=== PATIENT | male | born 1985 | race Hispanic/Latino ===

== ENCOUNTER 2018-02-07 19:01 | Emergency (ER) | payer MEDICAID, OTHER ==
[2018-02-07 19:53] VITALS: BMI 30.6
[2018-02-07 19:59] VITALS: RESP 18; TEMP 98
--- NOTE | 2018-02-07 23:06 | ED PDOC ---
Arrival/HPI - General Historian: Patient - History of Present Illness Narrative History of Present Illness (Text): 02/07/18 23:01 32-year-old male presents today with right ankle pain. Patient states he twisted his right ankle almost a week ago. Patient states he has been able to walk on it but he still having slight pain to the lateral aspect of the ankle with continued swelling. Patient also states he is having intermittent and left posterior knee pain. Patient denies any trauma or injury. He states for the past few months intermittently he'll get a sharp pain in the posterior aspect of the knee into the calf. Patient states he smokes occasionally. He denies numbness we akness or tingling in the extremity. He denies any pain in the calf or posterior knee at present time. <Virginia Rausch - Last Filed: 02/07/18 23:53> <Rey Brothers - Last Filed: 02/07/18 23:57> - General Chief Complaint: Lower Extremity Problem/Injury Time Seen by Provider: 02/07/18 21:14 Past Medical History - Provider Review Nursing Documentation Reviewed: Yes - Travel History Have you recently traveled outside [place] w/in the past 3 mons?: No - Psychiatric Hx Substance Use: No <Virginia Rausch - Last Filed: 02/07/18 23:53> Family/Social History - Physician Review Nursing Documentation Reviewed: Yes Family/Social History: Unknown Family HX Smoking Status: Light Smoker < 10 Cigarettes Daily Hx Alcohol Use: Yes Frequency of alcohol use: Socially Hx Substance Use: No <Virginia Rausch - Last Filed: 02/07/18 23:53> Allergies/Home Meds <Virginia Rausch - Last Filed: 02/07/18 23:53> <Rey Brothers - Last Filed: 02/07/18 23:57> Allergies/Adverse Reactions: Allergies No Known Allergies Allergy (Verified 02/07/18 19:56) Home Medications: Home Meds Medication Instructions Recorded Confirmed No Known Home Med 02/07/18 02/07/18 Review of Systems - Review of Systems Constitutional: absent: Fatigue, Fevers Respiratory: absent: SOB, Cough Cardiovascular: absent: Chest Pain, Palpitations Gastrointestinal: absent: Abdominal Pain, Nausea, Vomiting Genitourinary Male: absent: Dysuria Musculoskeletal: Arthralgias (right ankle pain; left posterior knee/calf pain). absent: Back Pain, Neck Pain Skin: absent: Rash, Pruritis Psychiatric: absent: Anxiety, Depression <Virginia Rausch - Last Filed: 02/07/18 23:53> Physical Exam Vital Signs Reviewed: Yes Vital Signs Temp Pulse Resp BP Pulse Ox 02/07/18 19:57 98.0 F 70 18 135/76 95 Temperature: Afebrile Blood Pressure: Normal Pulse: Regular Respiratory Rate: Normal Appearance: Positive for: Well-Appearing, Non-Toxic, Comfortable Pain Distress: None Mental Status: Positive for: Alert and Oriented X 3 - Systems Exam Head: Present: Atraumatic Mouth: Present: Moist Mucous Membranes Neck: Present: Normal Range of Motion Respiratory/Chest: Present: Clear to Auscultation, Good Air Exchange. No: Respiratory Distress, Accessory Muscle Use Cardiovascular: Present: Regular Rate and Rhythm, Normal S1, S2. No: Murmurs Upper Extremity: Present: Normal Inspection Lower Extremity: Present: NORMAL PULSES, Normal ROM, Tenderness (right ankle; + ttp and edema over lateral malleolus; no achilles tendon tenderness. no erythema; full rom of ankle. sensation and distal pulses intact. cap refill<2. left leg; no edema, no erythema; no ecchymosis; sensation and distal pulses intact. cap refill <2. ), Swelling, Neurovascularly Intact, Capillary Refill < 2 s. No: CALF TENDERNESS, Erythema, Deformity, Temperature Abnormalties Neurological: Present: GCS=15, Speech Normal Skin: Present: Warm, Dry, Normal Color. No: Rashes Psychiatric: Present: Alert, Oriented x 3 <Virginia Rausch - Last Filed: 02/07/18 23:53> Vital Signs Temp Pulse Resp BP Pulse Ox 02/07/18 19:57 98.0 F 70 18 135/76 95 <Rey Brothers - Last Filed: 02/07/18 23:57> Medical Decision Making ED Course and Treatment: 02/07/18 23:30 Patient nontoxic well-appearing in no distress with stable vital signs X-rays of the right ankle; no fracture duplex left leg; no dvt. Patient refused medications for pain pt refused aircast, randee wrap and crutches. PT states he has it at home. I discussed all results in depth with the patient advised to followup with the orthopedist within the next 2 days. Advised return if symptoms worsen persist or new symptoms develop i advised the patient that although the xrays show no fracture; there is still a possibility for ligamentous or tendon injury the patient must see the orthopedist for further evaluation. Patient verbalizes understanding of discharge instructions and need for immediate followup. all aspects of this case were discussed the attending of record. Impression: Ankle pain, leg pain Motrin every 6 hours as needed for pain Rest, ice, compression, elevation Use crutches for ambulation Followup with the orthopedist within the next 2 days Followup with primary care physician within the next 2 days Return if symptoms worsen persist or if new symptoms develop - RAD Interpretation Radiology Orders: 02/07/18 21:14 ANKLE RIGHT 3 VIEWS ROUTINE [RAD] Stat DUPLEX LOWER EXTRM VEIN LEFT [US] Stat <Virginia Rausch - Last Filed: 02/07/18 23:53> - RAD Interpretation Radiology Orders: 02/07/18 21:14 ANKLE RIGHT 3 VIEWS ROUTINE [RAD] Stat DUPLEX LOWER EXTRM VEIN LEFT [US] Stat <Rey Brothers - Last Filed: 02/07/18 23:57> - PA / [employer] / Resident Statement MANOJ has reviewed & agrees with the documentation as recorded. MANOJ has examined the patient and agrees with the treatment plan. <Rey Brothers - Last Filed: 02/07/18 23:57> Disposition/Present on Arrival - Present on Arrival Any Indicators Present on Arrival: No History of DVT/PE: No History of Uncontrolled Diabetes: No Urinary Catheter: No History of Decub. Ulcer: No History Surgical Site Infection Following: None - Disposition Have Diagnosis and Disposition been Completed?: Yes Disposition Time: 22:00 Patient Plan: Discharge <Virginia Rausch - Last Filed: 02/07/18 23:53> <Rey Brothers - Last Filed: 02/07/18 23:57> - Disposition Diagnosis: Ankle pain, Leg pain Disposition: HOME/ ROUTINE Condition: GOOD Discharge Instructions (ExitCare): Muscle and Bone Pain (DC) Additional Instructions: Motrin every 6 hours as needed for pain Rest, ice, compression, elevation Use crutches for ambulation Followup with the orthopedist within the next 2 days Followup with primary care physician within the next 2 days Return if symptoms worsen persist or if new symptoms develop Referrals: Lavon Gray DO [Staff Provider] - Follow up with primary Qiana Bell MD [Medical Doctor] - Follow up with primary [employer] [Outside] - Follow up with primary [facility] [Outside] - Follow up with primary Forms: [employer] (Martiniquais)
[2018-02-08 03:11] VITALS: BP 116/71; PULSE 78; O2SAT 99
--- NOTE | 2018-02-08 09:45 | US ---
PROCEDURE: Left lower extremity venous US HISTORY: Leg pain and swelling. Evaluate for DVT. PHYSICIAN(S): Abhi Messina MD. TECHNIQUE: Duplex sonography and color-flow Doppler with graded compression were used to evaluate the deep venous system of the left lower extremity. FINDINGS: The visualized deep venous system of the left lower extremity is sonographically normal and compressible. Normal wave forms and augmentation are seen. There is no sonographic evidence for deep venous thrombosis in the visualized segments of the left lower extremity. IMPRESSION: 1. No sonographic evidence for deep venous thrombosis in the visualized segments of the left lower extremity.
--- NOTE | 2018-02-08 15:46 | RAD ---
Date of service: 02/07/2018 PROCEDURE: Right Ankle Radiographs. HISTORY: ankle pain COMPARISON: None available. FINDINGS: BONES: Normal. No fracture. JOINTS: Normal. No osteoarthritis. Ankle mortise maintained. Talar dome intact SOFT TISSUES: Mild lateral soft tissue swelling. OTHER FINDINGS: None. IMPRESSION: Mild lateral soft tissue swelling. No acute fracture.
== END 2018-02-07 23:42 | disposition home or self-care (01) ==
LOC: ED 19:01
DX: M25.571 Pain in right ankle and joints of right foot (principal); M79.605 Pain in left leg